=== PATIENT | female | born 1960 | race Caucasian/White ===

== ENCOUNTER 2023-12-10 16:55 | Emergency (ER) | payer BC, MEDICAID ==
[~2023-12-10] VITALS: Ht 172.7 cm; Wt 73.0 kg
[~2023-12-10 16:55] MED LIST: SEE MED SHEET
[2023-12-10 17:16] VITALS: O2SAT 99
[2023-12-10] MEDS: ONDANSETRON 4MG ODT PO ONE (17:34)
[2023-12-10 17:44] LABS: BASOPHILS % 0.5 % (0.0-2.0); EOSINOPHILS % 0.1 % (0.0-5.0); HEMATOCRIT. 41.4 % (36.0-48.0); HEMOGLOBIN. 13.4 g/dL (12.0-16.0); LYMPHOCYTES % 24.1 % (20.0-50.0); MEAN CORPUSCULAR HGB CONC 32.4 g/dL (31.0-37.0); MEAN CORPUSCULAR VOLUME 83.4 fL (81.0-99.0); MEAN PLATELET VOLUME 11.2 fl (7.4-10.4); NEUTROPHILS % 72.3 % (40.0-76.0); PLATELET 193 x1000/uL (130-400); RED BLOOD CELL COUNT 4.96 mill/uL (4.2-5.4); WHITE BLOOD COUNT 17.6 x1000/uL (4.5-11.0)
[2023-12-10] MEDS: SODIUM CHLORIDE 0.9% 1,000 ML IV ONE (17:46)
[2023-12-10 17:51] LABS: CHLORIDE 102 mEq/L (98-107); POTASSIUM 4.2 mEq/L (3.5-5.1); SODIUM 138 mEq/L (136-145)
[2023-12-10 17:52] LABS: CARBON DIOXIDE 27 mEq/L (21-32)
[2023-12-10 17:54] LABS: CLARITY URINE CLEAR (CLEAR); COLOR URINE YELLOW (YELLOW); GLUCOSE URINE 3+ (NEGATIVE); KETONES URINE 2+ (NEGATIVE); LEUKOCYTE ESTERASE URINE 1+ (NEGATIVE); NITRITE URINE NEGATIVE (NEGATIVE); OCCULT BLOOD URINE NEGATIVE (NEGATIVE); PH URINE 5.5 (4.5-8.0); PROTEIN URINE TRACE (NEGATIVE); SPECIFIC GRAVITY URINE 1.034 (1.005-1.030)
[2023-12-10 17:57] LABS: CREATININE 0.7 mg/dL (0.6-1.0); GLUCOSE 263 mg/dL (70-105); UREA NITROGEN BLOOD 16 mg/dL (9-23)
[2023-12-10 17:59] LABS: ALANINE AMINOTRANSFERASE 35 IU/L (10-49); ASPARTATE AMINOTRANSFERASE 34 IU/L (<34); BILIRUBIN TOTAL 0.5 mg/dL (0.1-1.0); PROTEIN TOTAL 8.2 g/dL (6.0-8.3)
[2023-12-10 18:16] LABS: BACTERIA URINE TRACE; RBC URINE 0-2 /hpf (0-2); SQUAMOUS EPITHELIAL CELL URINE RARE /lpf (RARE/1+); WBC URINE 15-25 /hpf (0-2)
[2023-12-10] MEDS: MAGNESIUM/ALUMINUM HYDROXIDE/SIMETHICONE 30ML UDC PO ONE (18:16)
[2023-12-10 18:55] VITALS: BP 165/72; PULSE 68; RESP 18; TEMP 98.7
[2023-12-10 18:57] LABS: TROPONIN I HIGH SENSITIVITY < 4 ng/L (3.0-34)
[2023-12-10] MEDS ORDERED: BISMUTH SUBSALICYLATE 262 MG/15 ML-120ML BOTTLE PO ONE (19:45)
[2023-12-10 20:40] LABS: TROPONIN I HIGH SENSITIVITY < 4 ng/L (3.0-34)
== END 2023-12-10 21:03 | disposition left against medical advice (07) ==
LOC: ER 16:55
DX: R11.2 Nausea with vomiting, unspecified (principal); E11.9 Type 2 diabetes mellitus without complications; E78.00 Pure hypercholesterolemia, unspecified; I10 Essential (primary) hypertension
CPT/HCPCS: 99284; 96360; 76705; 71045; 80053; 81003; 82010; 83690; 85025; 87086; 84484; 36415; Q0162; J7030

== ENCOUNTER 2024-02-06 09:22 | Emergency (ER) | payer BC, MEDICAID ==
[~2024-02-06] VITALS: Ht 152.4 cm; Wt 100.0 kg
[2024-02-06 09:29] VITALS: O2SAT 99
[2024-02-06] MEDS ORDERED: KETOROLAC 15MG/ML VIAL IM ONE (10:30)
[2024-02-06] MEDS: KETOROLAC 15MG/ML VIAL IM NR (12:01)
[2024-02-06 13:04] VITALS: BP 155/91; PULSE 88; RESP 16; TEMP 36.89184; O2SAT 99
== END 2024-02-06 13:04 | disposition home or self-care (01) ==
LOC: ER 09:22
DX: M75.32 Calcific tendinitis of left shoulder (principal); M75.02 Adhesive capsulitis of left shoulder; E11.9 Type 2 diabetes mellitus without complications; E78.00 Pure hypercholesterolemia, unspecified; I10 Essential (primary) hypertension
CPT/HCPCS: 73030; 96372; 99283; J1885